=== PATIENT | male | born 1995 | race Caucasian/White ===

== ENCOUNTER 2018-05-23 17:13 | Emergency (ER) | payer BC ==
[2018-05-23 17:18] VITALS: BP 126/85
[2018-05-23] MEDS ORDERED: LET GEL TOPICAL 1 EA SYR TP ONE (17:28)
--- NOTE | 2018-05-23 17:30 | EDPHY ---
H & P Time Seen by Provider: 05/23/18 17:21 HPI/ROS: CHIEF COMPLAINT: Facial laceration HISTORY OF PRESENT ILLNESS: Happened this past Thursday night about 48 hr ago when he fell into a metal sign cutting the left side of his face. He has been putting rubbing alcohol. Tried Super glue. Presents today for wound evaluation. REVIEW OF SYSTEMS: No facial numbness. No salivary problems. No fever or chills. No other injuries. PAST MEDICAL HISTORY: Negative Social history: Nonsmoker General Appearance: Alert and conversant, cooperative. Patient has superficial irregular left cheek laceration in a vertical fashion 2 cm anterior to the left ear tragus. No active bleeding. No discharge or pus and no surrounding redness. Normal facial nerve sensation. No intraoral abnormalities. No discharge from the cheek. No cheek swelling. No mandibular tenderness and no malocclusion. Emergency Department course/MDM: Patient presents with superficial wound without evidence of injury to deeper structures, specifically does not have signs or symptoms or physical exam evidence of facial nerve or parotid duct injury. 48 hr out, discussed healing by secondary intention with the patient; I think that primary closure with this timing would result in unacceptably high risk of wound infection. Warned about scarring. Plastic surgery referral for any wound problems. Smoking Status: Never smoked Constitutional: Initial Vital Signs Temperature (C) 37.1 C 05/23/18 17:16 Heart Rate 79 05/23/18 17:16 Respiratory Rate 18 05/23/18 17:16 Blood Pressure 126/85 H 05/23/18 17:16 O2 Sat (%) 96 05/23/18 17:16 O2 Delivery Mode Room Air Allergies/Adverse Reactions: No Known Allergies Allergy (Unverified 05/23/18 17:15) Home Medications: Medication Instructions Recorded NK [No Known Home Meds] 05/23/18 MDM/Departure - MDM Medications Given: Discontinued Medications Tetracaine/Epinephrine/Lidocaine (Let Gel Topical) 1 ea TP EDNOW ONE Stop: 05/23/18 17:29 Last Admin: 05/23/18 17:30 Dose: 1 ea - Depart Disposition: Home, Routine, Self-Care Clinical Impression: Laceration of left cheek Qualifiers: Encounter type: initial encounter Qualified Code(s): S01.412A - Laceration without foreign body of left cheek and temporomandibular area, initial encounter Condition: Good Instructions: Acute Wounds (ED) Referrals: DOCTOR CHRISTINE [Other] - As per Instructions Arlyn Wakefield JR, MD [Medical Doctor] - As per Instructions (plastic surgery referral; this week if any wound problems)
== END 2018-05-23 18:00 | disposition home or self-care (01) ==
DX: S01.412A Laceration without foreign body of left cheek and temporomandibular area, initial encounter (principal); W01.118A Fall on same level from slipping, tripping and stumbling with subsequent striking against other sharp object, initial encounter